=== PATIENT | male | born 1990 | race Asian ===

== ENCOUNTER 2020-11-24 18:04 | Emergency (ER) | payer OTHER ==
[2020-11-24 18:30] VITALS: BP 136/97
[2020-11-24] MEDS ORDERED: IBUPROFEN 600 MG TABLET ONE (19:11)
[2020-11-24] MEDS ORDERED: IBUPROFEN 600 MG TABLET PO ONE (19:30)
== END 2020-11-24 19:31 | disposition home or self-care (01) ==
LOC: ED 19:20
DX: S16.1XXA Strain of muscle, fascia and tendon at neck level, initial encounter (principal); M25.521 Pain in right elbow; V49.59XA Passenger injured in collision with other motor vehicles in traffic accident, initial encounter; Y93.89 Activity, other specified; Y92.410 Unspecified street and highway as the place of occurrence of the external cause; Y99.8 Other external cause status
CPT/HCPCS: 72020; 72050; 99284